=== PATIENT | male | born 1985 | race Caucasian/White ===

== ENCOUNTER 2021-02-25 14:00 | Outpatient (CLI) | payer OTHER, SELFPAY ==
--- NOTE | ~2021-02-25 | XR_ITS ---
EXAMINATION: XR finger 4th LT min 2V DATE: 02/25/2021 14:32 INDICATION: Pain and bruising at the left fourth proximal interphalangeal joint post injury TECHNIQUE: Dorsal palmar, lateral and 2 oblique views of the left fourth digit were obtained COMPARISON: None FINDINGS: Subtle swan-neck deformity of the left fourth digit which appears to result from a minimally distract ed avulsion fracture at the dorsal base of the left fourth distal phalanx. Alignment is otherwise nor mal. No other fractures identified. Joint spaces are normal. Soft tissue swelling at the fourth digit most prominent about the proximal interphalangeal joint. IMPRESSION: 1. Minimally distracted avulsion fracture at the dorsal base of the fourth distal phalanx. Reviewed, dictated and finalized at location A. IMPRESSION: 1. Minimally distracted avulsion fracture at the dorsal base of the fourth dist al phalanx.
[2021-02-25 15:36] LABS: Thyroid Stimulating Hormone Reflex 4.84 u/IU/mL (0.36-3.74)
[2021-02-25 16:10] LABS: Free T4 Free Thyroxine Reflex 0.92 ng/dL (0.76-1.46)
== END 2021-02-25 14:01 | disposition home or self-care (01) ==
PROVIDERS: PCP Family Medicine; Visit Provider Family Medicine
DX: E11.9 Type 2 diabetes mellitus without complications (principal); E03.9 Hypothyroidism, unspecified; M79.645 Pain in left finger(s); S62.635A Displaced fracture of distal phalanx of left ring finger, initial encounter for closed fracture
CPT/HCPCS: 36415; 73140; 84439; 84443

== ENCOUNTER 2022-06-13 16:07 | Outpatient (NON) | payer OTHER, SELFPAY | END 2022-06-13 16:08 | disposition home or self-care (01) | LOC: CHSLAB 16:09 | PROVIDERS: PCP Family Medicine; Visit Provider Family Medicine | DX: L57.0 Actinic keratosis (principal) | CPT/HCPCS: 88305 ==

== ENCOUNTER 2022-06-21 13:15 | Outpatient (CLI) | payer OTHER, SELFPAY ==
[2022-06-21 13:52] LABS: Thyroid Stimulating Hormone 7.42 uIU/mL (0.36-3.74)
== END 2022-06-21 13:16 | disposition home or self-care (01) ==
LOC: CHSLAB 13:18
PROVIDERS: PCP Family Medicine; Visit Provider Family Medicine
DX: E03.9 Hypothyroidism, unspecified (principal)
CPT/HCPCS: 36415; 84443

== ENCOUNTER 2023-04-03 15:43 | Outpatient (CLI) | payer OTHER, SELFPAY ==
[2023-04-03 16:39] LABS: Thyroid Stimulating Hormone Reflex 0.03 u/IU/mL (0.36-3.74)
[2023-04-03 17:02] LABS: Free T4 Free Thyroxine Reflex 1.02 ng/dL (0.76-1.46)
== END 2023-04-03 15:44 | disposition home or self-care (01) ==
LOC: CHSLAB 15:45
PROVIDERS: PCP Family Medicine; Visit Provider Family Medicine
DX: E03.9 Hypothyroidism, unspecified (principal); E11.9 Type 2 diabetes mellitus without complications
CPT/HCPCS: 36415; 84439; 84443

== ENCOUNTER 2024-08-01 12:17 | Outpatient (CLI) | payer OTHER, SELFPAY ==
[2024-08-01 13:27] LABS: Thyroid Stimulating Hormone Reflex 28.61 u/IU/mL (0.36-3.74)
[2024-08-01 13:46] LABS: Free T4 Free Thyroxine Reflex 0.61 ng/dL (0.76-1.46)
== END 2024-08-01 12:18 | disposition home or self-care (01) ==
PROVIDERS: PCP Family Medicine; Visit Provider Family Medicine
DX: E03.9 Hypothyroidism, unspecified (principal)
CPT/HCPCS: 36415; 84439; 84443